=== PATIENT | male | born 1985 ===

== ENCOUNTER 2017-09-26 18:28 | Emergency (ER) | payer SELFPAY ==
[2017-09-26 18:40] VITALS: BP 138/88; PULSE 68; RESP 16; TEMP 97.8; O2SAT 100
--- NOTE | 2017-09-26 18:57 | PD ---
HPI Chief Complaint: Oral / Dental Pain or Problem Time Seen by Provider: 18:56 Travel History International Travel<30 days: No Contact w/Intl Traveler<30days: No Traveled to known affect area: No History of Present Illness HPI 31-year-old -[place] male, presents emergency department with dental pain status post extraction of the right upper third molar earlier today. Patient has been taking ibuprofen without relief. Pain is currently 9 out of 10. He is sensitive to hot and cold. He denies significant bleeding. He is not on antibiotics currently. He is requesting something stronger for pain. He denies difficulty swallowing or swelling of mouth or tongue or throat. He has no known drug allergies. PFSH Past Medical History Medical History: Denies Significant Hx Tetanus Vaccination: < 5 Years Past Surgical History Other Surgery: Yes (back surgery) Social History Alcohol Use: No Tobacco Use: Yes Substance Use: No Allergies-Medications (Allergen,Severity, Reaction): Coded Allergies: No Known Allergies (Unverified , 09/26/17) Reported Meds & Prescriptions Reported Meds & Active Scripts Active No Active Prescriptions or Reported Medications Review of Systems Except as stated in HPI: all other systems reviewed are Neg General / Constitutional: No: Fever Eyes: No: Visual changes HENT: Positive: Dental Difficulties, No: Headaches, Vertigo, Lightheadedness, Sore Throat, Rhinitis, Rhinorrhea, Congestion, Nosebleed, Neck Stiffness, Neck Pain, Masses, Gingival Bleeding, Ear Discharge, Earache Cardiovascular: No: Chest Pain or Discomfort Respiratory: No: Shortness of Breath Gastrointestinal: No: Abdominal Pain Genitourinary: No: Dysuria Musculoskeletal: No: Pain Skin: No Rash Neurologic: No: Weakness Psychiatric: No: Depression Endocrine: No: Polydipsia Hematologic/Lymphatic: No: Easy Bruising Physical Exam Narrative GENERAL: Patient appears in moderate distress. SKIN: Warm and dry. Normal color. Normal turgor HEAD: Atraumatic. Normocephalic. No significant swelling noted. EYES: Pupils equal and round. No scleral icterus. No injection or drainage. ENT: No nasal bleeding or discharge. Mucous membranes pink and moist. Pharynx is clear. Airways patent. Patient has an empty socket in the right upper posterior jaw consistent with history. No significant gingival swelling or bleeding is noted NECK: Trachea midline. Supple and nontender. No significant lymphadenopathy CARDIOVASCULAR: Regular rate and rhythm. RESPIRATORY: No accessory muscle use. Clear to auscultation. Breath sounds equal bilaterally. MUSCULOSKELETAL: Extremities without clubbing, cyanosis, or edema. No obvious deformities. NEUROLOGICAL: Awake and alert. No obvious cranial nerve deficits. Motor grossly within normal limits. Five out of 5 muscle strength in the arms and legs. Normal speech. PSYCHIATRIC: Appropriate mood and affect; insight and judgment normal. Data Data Last Documented VS Vital Signs Date Time Temp Pulse Resp B/P (MAP) Pulse Ox O2 Delivery O2 Flow Rate FiO2 09/26/17 18:40 97.8 68 16 138/88 (105) 100 MDM Medical Decision Making Medical Screen Exam Complete: Yes Emergency Medical Condition: Yes Differential Diagnosis Recent dental extraction. Dental pain. Dry socket. Narrative Course Patient is given Lortab 5/325 1 p.o. now Patient is given Magic mouthwash as directed 120 mL's Patient is given amoxicillin 875 p.o. now and continued twice daily 7 days. Patient is given a prescription for Magic mouthwash as directed 120 mL's Patient also given hydrocodone 5/325 one every 6 hours as needed pain #12. Patient to follow-up with his dentist as needed. Diagnosis Primary Impression: Pain, dental Referrals: Dentist Patient Instructions: Dental Abscess (ED), General Instructions, Narcotic given in the ED Additional Instructions: Patient is given amoxicillin 875 p.o. now and continued twice daily 7 days. Patient is given a prescription for Magic mouthwash as directed 120 mL's Patient also given hydrocodone 5/325 one every 6 hours as needed pain #12. Patient to follow-up with his dentist as needed. Med/Other Pt SpecificInfo: Prescription(s) given Scripts No Active Prescriptions or Reported Meds Disposition: 01 DISCHARGE HOME Condition: Stable Matt Li Sep 26, 2017 18:57
[2017-09-26] MEDS ORDERED: AMOX875T PO (19:08)
[2017-09-26] MEDS ORDERED: HYDR-3516 PO (19:08)
[2017-09-26] MEDS ORDERED: MAGICADU2 SWISH-SPIT (19:08)
[2017-09-26] MEDS ORDERED: NYSTAT/DIPHENHY/LIDO MOUTHWASH (Adult) 120ML SWISH-SPIT SCH (19:15)
[2017-09-26] MEDS ORDERED: AMOXICILLIN 875 MG TAB PO ONE (19:15)
[2017-09-26] MEDS ORDERED: ACETAMINOPHEN/HYDROcodone 325 MG/5 MG TAB PO ONE (19:15)
== END 2017-09-26 19:33 | disposition home or self-care (01) ==
LOC: NEPK 18:28
DX: K08.89 Other specified disorders of teeth and supporting structures (principal); Z72.0 Tobacco use
CPT/HCPCS: 99283